=== PATIENT | male | born 1995 | race Caucasian/White ===

== ENCOUNTER → 2018-11-19 07:07 | Day surgery (SDC) | payer OTHER ==
--- NOTE | 2018-11-16 16:39 | HP ---
PREOPERATIVE HISTORY AND PHYSICAL: DATE OF ADMISSION/SURGERY: 11/19/18 DATE OF OFFICE VISIT: 11/16/18 ATTENDING SURGEON: Dr. Gallo Lenz.* (DICTATED BY HANNAH DOZIER) PROCEDURE: Left shoulder arthroscopic decompression, debridement, subpectoral biceps tenodesis, possible labral repair. CHIEF COMPLAINT: Left shoulder pain. HISTORY OF PRESENT ILLNESS: Devon is a 23-year-old male who presents to the clinic for left shoulder pain due to a SLAP lesion and impingement of the shoulder. He has failed conservative measures and therefore agreed to undergo left shoulder arthroscopy, decompression, debridement, subpectoral biceps tenodesis, possible labral repair with Dr. Lenz on 11/19/18. PAST MEDICAL HISTORY: Asthma and glaucoma. PAST SURGICAL HISTORY: [place] teeth. MEDICATIONS: Combigan 0.2-0.5% 1 drop each eye twice daily. ALLERGIES: No known drug allergies. FAMILY HISTORY: Positive for hypertension in father. SOCIAL HISTORY: He lives with his roommate. 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 He denies tobacco use. He reports one alcoholic beverage a week. He exercises regularly. He is right- hand dominant. REVIEW OF SYSTEMS: A 14-point review of systems was reviewed with the patient. Positive for current complaint, otherwise negative. Denies fevers, chills, chest pain, shortness of breath, history of DVT or PE, history of bleeding disorder. PHYSICAL EXAMINATION GENERAL: A 23-year-old well-developed, well-nourished male, in on acute distress. VITAL SIGNS: Height 73, weight 150, pulse 68, blood pressure 112/80, respiratory rate 18, BMI 19.8. HEENT: Normocephalic, atraumatic. PERRLA. Throat: Clear. NECK: Supple. PULMONARY: Lungs are clear to auscultation bilaterally. No wheezing, rhonchi or rales. CARDIO: Regular rate and rhythm. S1, S2. No murmurs, gallops or rubs. No edema. ABDOMEN: Positive bowel sounds, soft, nontender. NEURO: Alert and oriented x3. Cranial nerves grossly intact. MUSCULOSKELETAL: Left upper extremity: Skin is intact. Tender over the bicipital groove and subacromial space. Forward flexion 180, abduction 180, external rotation 35, internal rotation T8. Passive forward flexion and rotator cuff testing with pain. Positive impingement, Speed, Jarquin-Antonio, and Mcculloch. +2 radial pulse. +1 posterior and anterior glide. Mildly positive apprehension. Negative relocation test. Negative sulcus sign. Sensation is intact to light touch distally. DIAGNOSTIC STUDIES: MRI reveals superior labral tearing with extension to the posterior labrum. IMPRESSION: Left shoulder labral tear and impingement. PLAN: The patient is scheduled to undergo left shoulder arthroscopic decompression, debridement, subpectoral biceps tenodesis, possible labral repair with Dr. Lenz on 11/19/18. He will follow up postoperatively for suture removal. HANNAH DOZIER [id number]/[facility] #: [id number] MTDD
[~2018-11-19 07:07] MED LIST: Acetaminophen IV 1GM/100ML * 100 ML ONE; Buffered Lidocaine 0.9% SYRIN* 5 ML/SYR SYRINGE INTRADERM ONE; Dexamethasone IV* 4 MG/ML 1 ML (4 MG) ONE; DiMENhydriNATE IV* 50 MG/ML VIAL IV PUSH PRN; EPINEPHRINE 1 MG/ML 1 ML VIAL ONE; Glycopyrrolate IV* 0.2 MG/ML 1 ML VIAL ONE; HYDROmorphone INJ1* 1 MG/ML SYRINGE IV PRN; HYDROmorphone INJ1* 1 MG/ML SYRINGE ONE; Ketorolac INJ* 30 MG/ML 1 ML VIAL ONE; Lactated Ringers 1000 ML Bag* 1,000 ML IV SCH; Lidocaine 1% INJ* 10 MG/ML 30 ML SDV ONE; Lidocaine 2% PF * 5 ML VIAL ONE; Metoclopramide IV* 5 MG/ML 2 ML VIAL ONE; Midazolam* 1 MG/ML 2 ML VIAL (2 MG) ONE; Naloxone* 0.4 MG/ML 1 ML VIAL IV PRN; Neostigmine Methylsulfate* 1 MG/ML 10 ML VIAL (1 mg/ml) ONE; Ondansetron INJ* 2 MG/ML VIAL ONE; Propofol* 10 MG/ML 20 ML BTL ONE; ROPIVACAINE 5 MG/ML 30 ML BTL (0.5%) ONE; Rocuronium* 10 MG/ML VIAL ONE; ceFAZolin 2 GM PREMIX in ORs 2 GM/50 ML BAG IVPB ONE; fentaNYL* 50 MCG/ML 2 ML VIAL (100 MCG VIAL) ONE; oxyCODONE TAB* 5 MG TAB PO PRN; oxyCODONE/Acetamin 5/325 MG* TAB ONE
[2018-11-19 14:23] VITALS: BP 118/68
--- NOTE | 2018-11-20 02:27 | OP ---
DATE OF OPERATION: 11/19/18 - [facility] DATE OF : [birth year] SURGEON: Gallo Lenz MD FAMILY SERVICE AIDE: HANNAH Barber. An curriculum assistant principal was needed for the entirety of the case to help with positioning, retraction, and was utilized throughout all portions of the case. ANESTHESIOLOGIST: Dr. Talamantes. ANESTHESIA: General with interscalene block. PRE-OP DIAGNOSIS: Left shoulder impingement with superior glenoid lesion, possible labral tear. POST-OP DIAGNOSIS: Left shoulder superior labral tear, anterior labral tear, posterior labral fraying, and impingement. OPERATIVE PROCEDURE: Left shoulder arthroscopy with: 1. Extensive glenohumeral debridement. 2. Arthroscopic anterior labral repair. 3. Subacromial decompression with acromioplasty. 4. Subpectoral biceps tenodesis. COMPLICATIONS: None. ESTIMATED BLOOD LOSS: Minimal. IMPLANTS USED: 3 Padilla and Nephew 2.9 Bioraptors and one 2.8 mm Q-Fix. INDICATIONS: Devon Pierce is a 23-year-old male who presents with chronic superior labrum tear that has been bothersome. He has persistent pain as well as impingement. He also has some findings of instability on his exam as well as his MRI findings. After extensive physical therapy, anti-inflammatories, ice , and heat, he has elected to proceed with surgical treatment. Risks and benefits were discussed at length which included, but are not limited to, bleeding; infection; damage to nerves, vessels, surrounding structures; wound nonhealing; persistent pain; need for further surgery; scarring; stiffness; incomplete relief of symptoms; risks of anesthesia. DESCRIPTION OF PROCEDURE: The patient was greeted in the preoperative area by the attending surgeon. Correct extremity was marked and consent was confirmed. The patient underwent interscalene nerve block, after which he was brought back to the operating suite, where he was placed in supine position on the operating table. He then underwent general anesthesia with endotracheal intubation, after which he was placed in the right lateral decubitus position. All bony prominences were padded. He was secured with a pegboard. The left shoulder was draped unsterile with 10 pounds of traction. The left shoulder was then prepped and draped in the usual sterile fashion beginning with chlorhexidine soap, scrub, and alcohol wipe and a final prep with ChloraPrep. After appropriate surgical pause indicating side, site, procedure, and administration of antibiotics, a standard postero-lateral portal was made sharply with 11 blade. The scope was introduced into the joint and the joint was examined. There were small areas of grade 1 to 2 changes about the anterior and posterior aspects of the glenoid inferiorly. The shaver was used to debride back the unstable flaps anteriorly and posteriorly about the glenoid. There was evidence of anterior subluxation of the humerus as well as anterior labral tear. The posterior labrum has some fraying but was otherwise intact. Superior labrum was torn, a SLAP type 2 tear. At this point, a low anterior portal was made using an 18 gauge needle for localization. The low anterior portal was made using an 8.5 mm cannula. Then, a second portal was made superiorly in the interval for a 5 mm cannula for suture shuttling. Once these were established, attention was directed to the labrum again. The labrum was torn in full-thickness fashion off the glenoid. This was not fraying. This was more of an acute type of tear. The labrum was elevated beginning at the 3 o 'clock position all the way to the 6 o'clock position inferiorly to allow for the capsule and the labrum to be brought back. Once this was done, the glenoid was then carefully prepared using the shaver, the red ball rasp to rasp the glenoid to allow for good bony bleeding. Then much good blood return was done. The capsule was also rasped as well. At this point, anchor placement was begun. Beginning inferiorly at around the 5:30 position, a Bioraptor was placed with excellent purchase. Sutures were then passed using suture passing device beginning inferiorly to exit, superiorly to allow for capsular shift as well as repair of the labrum. This helped to eliminate drive-through sign. A second anchor was then placed at the 4:30 position. Sutures were then passed again in similar fashion in a horizontal mattress configuration and then tied down using arthroscopic knot tying technique. A final anchor was then placed around 3:30 position and passed in a simple fashion. This helped to restore the anterior labrum. The head was now sitting more centrally in the joint. The scope was positioned through superior portal and again visualized and found to be appropriately seated. The posterior labrum was then visualized and there was fraying, but no discrete tear. Decision was made to continue to do the biceps tenotomy for later tenodesis. Attention was directed to subacromial space. With the scope positioned in the subacromial space, a lateral portal was made in an outside-in fashion. Shaver was used to debride back the bursa. The thick bursa was then removed and under surface of the acromion was skeletonized using electrocautery device. A 4-0 oval bur was then used to do an acromioplasty. Final images were obtained. The attention was directed to the biceps. The bed was airplaned to the left side. The anterior aspect of the shoulder was prepped again using ChloraPrep. A 15 blade was used to make an incision in line with the biceps tendon and inferior border of the pec. The soft tissues were carefully dissected. Once the pec fascia was identified, the remainder of the dissection was done bluntly. The pec was elevated and the biceps was palpated. The biceps was brought then through the wound and found to have synovitis. The bicipital groove was then prepared in usual fashion with electrocautery device, red ball rasp, and osteotome. The Q-Fix guide was then placed and drilled unicortically. The Q-Fix was deployed with excellent purchase. The sutures were then passed through the tendon in a El-Samir type configuration. Excess stump was excised. The biceps was then secured after it was was shuttled back to the wound. The wounds were copiously irrigated with sterile saline. The portals were closed with 3-0 nylon. The anterior wound was closed in layers with 2-0 Vicryl and 0 Monocryl. Sterile dressings were applied as well as the Cryo/Cuff and UltraSling were applied. He was awoken from anesthesia and transferred to the PACU in stable condition. POSTOPERATIVE PLAN: He will start therapy at about 2 to 4 weeks. He will be in a sling for 4 to 5 weeks. He will be discharged on pain medication and antibiotics. DVT prophylaxis was considered, but deferred due to no previous personal or family history. I will see the patient back in potentially 2 weeks. [id number]/[facility] #: [id number] LONNIE
== END | disposition home or self-care (01) ==
LOC: OR 07:07
PROVIDERS: ATTEND Orthopaedic Surgery
DX: S43.492A Other sprain of left shoulder joint, initial encounter (principal); M75.42 Impingement syndrome of left shoulder; J45.909 Unspecified asthma, uncomplicated; X58.XXXA Exposure to other specified factors, initial encounter; Y92.9 Unspecified place or not applicable; G89.18 Other acute postprocedural pain
CPT/HCPCS: A9270-GY; C1776; J0690; J1100; J1170; J1885; J2250; J2405; J2704; J2710; J2765; J2795; J3010